=== PATIENT | female | born 1985 | race Caucasian/White ===

== ENCOUNTER → 2020-10-19 17:25 | Outpatient (BNVA) | payer MEDICAID, SELFPAY | PROVIDERS: Family Provider Family Medicine; PCP Family Medicine; Visit Provider Nurse Practitioner Family | DX: Z20.828 Contact with and (suspected) exposure to other viral communicable diseases (principal); J06.9 Acute upper respiratory infection, unspecified | CPT/HCPCS: 87635 ==

== ENCOUNTER → 2021-03-26 11:34 | Outpatient (BNVA) | payer MEDICAID, SELFPAY | PROVIDERS: Family Provider Family Medicine; PCP Family Medicine; Visit Provider Nurse Practitioner Family | DX: Z20.822 Contact with and (suspected) exposure to COVID-19 (principal) | CPT/HCPCS: 87635; 99211 ==

== ENCOUNTER 2022-12-17 15:08 | Emergency (ER) | payer MEDICAID, SELFPAY ==
[2022-12-17 15:17] VITALS: BP 151/111; PULSE 108; RESP 20; TEMP 36.8; O2SAT 100; BMI 24.5
[2022-12-17 15:24] VITALS: BP 151/111; PULSE 108; RESP 16; TEMP 36.8; O2SAT 100
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
[2022-12-17] MEDS: amoxicillin-clav 875-125 mg Tablet 1 TAB PO (17:38)
[2022-12-17] MEDS: HYDROcodone-acetaminophen 5-325 mg Tablet 1 TAB PO (17:39)
[2022-12-17 17:42] VITALS: PULSE 83; RESP 18; O2SAT 99
--- NOTE | 2022-12-18 11:56 | DCPLANNER ---
Addendum entered by Anna Sandoval 12/24/22 13:54: qa manager received the following messages from the ENT clinic regarding follow up appointment: Called and no answer - unable to leave message Mailing letter after 3rd attempt of contact.. Saud Waller completed item. On Thu 9:24a Dec 19, 2022 Saud Waller (Covering For: ENT Front Office) Wrote To: ENT Front Office unable to leave message due to no voicemail box 12/19 On 12/18/22 @ 16:00 Saud Waller Wrote To ENT Front Office Called patient & was unable to leave message due to no voicemail box Original Note: qa manager had message to schedule a follow up appointment for patient with ENT. qa manager sent patients information to the front office staff at ENT. Patients information will be printed and reviewed. Clinic will call patient with appointment information.
== END 2022-12-17 17:43 | disposition home or self-care (01) ==
PROVIDERS: Emergency Provider Nurse Practitioner Family; PCP Family Medicine
DX: S02.2XXA Fracture of nasal bones, initial encounter for closed fracture (principal); F17.290 Nicotine dependence, other tobacco product, uncomplicated; V89.2XXA Person injured in unspecified motor-vehicle accident, traffic, initial encounter
CPT/HCPCS: 70450; 70486; 72125; 99284